=== PATIENT | female | born 1970 | race Caucasian/White ===

== ENCOUNTER 2020-11-17 14:25 | Emergency (ER) | payer OTHER ==
[~2020-11-17 14:25] MED LIST: LISINOPRIL20 MG PO
[2020-11-17 15:44] LABS: HEMOGLOBIN 14.6 gm/dl (12.3-15.3); RED BLOOD COUNT 4.52 M/UL (4.00-5.10); WHITE BLOOD COUNT 6.7 K/UL (4.5-11.0)
[2020-11-17 16:07] LABS: BUN/CREATININE RATIO 20 (0-10)
== END 2020-11-17 17:04 | disposition home or self-care (01) ==
LOC: ER1 14:25
PROVIDERS: Physician Assistant
DX: I10 Essential (primary) hypertension (principal); Z90.49 Acquired absence of other specified parts of digestive tract; Z90.710 Acquired absence of both cervix and uterus; Z88.0 Allergy status to penicillin
CPT/HCPCS: 71045; 80053; 82550; 82553; 83874; 84484; 85025; 93005; 99284